=== PATIENT | female | born 1940 | race Caucasian/White ===

== ENCOUNTER → 2023-11-19 12:18 | Outpatient (REF) | payer MEDICARE, SELFPAY | LOC: HWRAD 12:18 | PROVIDERS: ATTENDING PHYSICIAN Family Medicine | DX: R41.3 Other amnesia (principal); K70.30 Alcoholic cirrhosis of liver without ascites | CPT/HCPCS: 70450 ==

== ENCOUNTER → 2024-10-03 09:22 | Outpatient (REF) | payer MEDICARE, SELFPAY ==
[2024-10-03 11:22] LABS: Hematocrit 37.5 % (37.0-47.0); Hemoglobin 12.5 g/dL (12.0-16.0); Mean Corp Hgb Conc. 33.3 g/dL (33.0-37.0); Mean Corpuscular Volume 91.2 fL (81.0-99.0); Nucleated Red Blood Cells % 0 %; Platelet Count 112 10^3/uL (130-400); Red Cell Dist. Width 13.7 % (11.5-14.5)
[2024-10-03 11:29] LABS: INR 1.15; PT 15.1 Sec (11.4-14.6)
[2024-10-03 11:56] LABS: ALT (SGPT) 30 U/L (0-35); AST (SGOT) 39 U/L (14-36); Albumin 4.0 g/dl (3.5-5.0); Alkaline Phosphatase 64 U/L (38-126); Blood Urea Nitrogen 17 mg/dl (7-17); Calcium 9.4 mg/dl (8.4-10.2); Carbon Dioxide 28 mmol/L (22-30); Chloride 106 mmol/L (98-107); Glucose 92 mg/dl (70-99); Sodium 137 mmol/L (135-145); Total Protein 6.5 g/dl (6.3-8.2); eGFR > 60.00
[2024-10-03 12:03] LABS: Potassium 4.4 mmol/L (3.5-5.1)
[2024-10-03 12:27] LABS: AFP Male/Tumor Marker 1.78 ng/ml
== END ==
LOC: HWRAD 09:22
PROVIDERS: ATTENDING PHYSICIAN Internal Medicine Gastroenterology; FAMILY PHYSICIAN Family Medicine
DX: K70.30 Alcoholic cirrhosis of liver without ascites (principal)
CPT/HCPCS: 36415; 76700; 80053; 82105; 85025; 85610

== ENCOUNTER → 2024-10-09 14:17 | Outpatient (REF) | payer MEDICARE, SELFPAY | LOC: RCS 14:17 | PROVIDERS: ATTENDING PHYSICIAN Family Medicine | DX: R41.3 Other amnesia (principal); I35.0 Nonrheumatic aortic (valve) stenosis | CPT/HCPCS: 93306 ==